=== PATIENT | female | born 1945 | race Caucasian/White ===

== ENCOUNTER → 2017-08-03 | Outpatient (CLI) | payer MEDICARE | END | disposition home or self-care (01) | LOC: CFH 11:21 | PROVIDERS: ATTEND Nurse Practitioner Family | DX: Z12.31 Encounter for screening mammogram for malignant neoplasm of breast (principal); Z13.820 Encounter for screening for osteoporosis; M85.80 Other specified disorders of bone density and structure, unspecified site; N95.1 Menopausal and female climacteric states | CPT/HCPCS: 77080; 77067 ==

== ENCOUNTER 2018-05-15 09:16 | Emergency (ER) | payer MEDICARE ==
[~2018-05-15] VITALS: Ht 157.5 cm; Wt 62.3 kg
[2018-05-15] MEDS ORDERED: KETOROLAC 30 MG/1 ML IM ONE (10:00)
[2018-05-15] MEDS ORDERED: KETOROLAC 30 MG/1 ML ONE (10:07)
[2018-05-15 11:13] VITALS: BP 124/72
== END 2018-05-15 11:15 | disposition home or self-care (01) ==
LOC: ED 10:08
DX: S46.812A Strain of other muscles, fascia and tendons at shoulder and upper arm level, left arm, initial encounter (principal); M54.6 Pain in thoracic spine; F41.1 Generalized anxiety disorder; X50.9XXA Other and unspecified overexertion or strenuous movements or postures, initial encounter; Y93.89 Activity, other specified; Y92.009 Unspecified place in unspecified non-institutional (private) residence as the place of occurrence of the external cause; Y99.8 Other external cause status
CPT/HCPCS: 73030; 93005; 96372; 99283; J1885